=== PATIENT | male | born 1990 | race Caucasian/White ===

== ENCOUNTER 2017-12-10 17:05 | Observation (INO) ==
[2017-12-10] MEDS ORDERED: *HR* EPINEPHrine 1 MG/ML AMPUL IM ONE ×3 (17:26→19:42)
[2017-12-10] MEDS ORDERED: Famotidine 20 MG/2 ML VIAL IVP ONE (17:26)
[2017-12-10] MEDS ORDERED: methylPREDNISolone 125 MG/2 ML VIAL IVP ONE (17:26)
[2017-12-10] MEDS ORDERED: Albuterol 2.5 MG/3 ML NEBULIZER IH ONE ×2 (17:27→17:38)
[2017-12-10] MEDS ORDERED: *HR* EPINEPHrine 1 MG/ML AMPUL ONE (17:28)
[2017-12-10] MEDS ORDERED: 0.9 % Sodium Chloride 1,000 ML IVC ONE (17:30)
[2017-12-10] MEDS ORDERED: Ondansetron 4 MG/2 ML VIAL IVP ONE (17:30)
[2017-12-10] MEDS ORDERED: Albuterol 2.5 MG/3 ML NEBULIZER ONE (17:36)
--- NOTE | 2017-12-10 17:52 | Emergency Department Note ---
Disposition Clinical Impression: Acute anaphylaxis Disposition: Admitted As Inpatient Condition: Serious General Adult HPI - General Chief complaint: ED Chest Pain Stated complaint: real bad chest pain Time Seen by Provider: 12/10/17 17:24 Source: patient Limitations: other - History of Present Illness Pain Scale: 10 - Related Data Home Medications Medication Instructions Recorded Confirmed Omeprazole [PriLOSEC] 40 mg PO DAILY 12/10/17 12/10/17 Allergies Allergy/AdvReac Type Severity Reaction Status Date / Time Iodinated Contrast- Oral and Allergy Anaphylaxis Verified 12/10/17 18:22 IV Dye [Iodinated Contrast Media - IV Dye] Sulfa (Sulfonamide Allergy Hives Verified 12/10/17 18:22 Antibiotics) Past Medical History - Past Medical History Medical history: Reports: GERD Surgical history: Reports: non-contributory, other Psychiatric history: Reports: no psych history - Social History Smoking Status: Never smoker Smokeless Tobacco Status: No Alcohol use: Reports: none Drug use: Reports: none Physical Exam - General Limitations: other General appearance: alert, anxious Course Vital Signs Temperature 97.7 F 12/10/17 17:17 Pulse Rate 131 12/10/17 17:17 Respiratory Rate 22 12/10/17 17:17 Blood Pressure 145/88 12/10/17 17:17 O2 Sat by Pulse Oximetry 96 12/10/17 17:17 Temperature 97.7 F 12/10/17 17:17 Pulse Rate 120 12/10/17 20:16 Respiratory Rate 16 12/10/17 20:44 Blood Pressure 136/93 12/10/17 20:44 O2 Sat by Pulse Oximetry 99 12/10/17 20:16 Oxygen Delivery Oxygen Delivery Room Air Medical Decision Making - Lab Data Result diagrams: 12/10/17 17:59 12/10/17 17:59 Lab Results 12/10/17 12/10/17 Range/Units 17:59 17:59 WBC 16.9 H (4.3-11.1) K/mcL RBC 6.81 H (4.19-5.50) M/mcL Hgb 17.8 H (12.9-16.9) g/dL Hct 51.6 H (37.5-50.1) % MCV 75.8 L (83.0-100.0) fL MCH 26.1 L (28.0-33.3) pg MCHC 34.5 (31.6-35.5) g/dL RDW 15.0 H (11.5-14.5) % Plt Count 376 (140-400) K/mcL MPV 10.3 (9.4-12.4) fL Immature Gran % 0.5 (0-4) % Seg Neutrophils % 74.1 % Lymphocytes % 19.4 % Monocytes % 5.3 % Eosinophils % 0.5 % Basophils % 0.2 % Neutrophils # 12.5 H (1.6-8.9) K/mcL Lymphocytes # 3.3 (0.6-4.6) K/mcL Monocytes # 0.9 (0.0-1.3) K/mcL Eosinophils # 0.1 (0.0-0.6) K/mcL Basophils # 0.0 (0.0-0.2) K/mcL Sodium 140 (136-145) mEq/L Potassium 3.6 (3.5-5.1) mEq/L Chloride 104 (98-107) mEq/L Carbon Dioxide 25 (23-29) mEq/L BUN 15 (6-20) mg/dL Creatinine 0.86 (0.70-1.30) mg/dL Est GFR ( Amer) > 60 (> 60) Est GFR (Non-Af Amer) > 60 (> 60) BUN/Creatinine Ratio 17 (6-26) Glucose 170 H (70-105) mg/dL Calculated Osmolality 295 (280-300) Calcium 9.1 (8.6-10.3) mg/dL Critical Care Time Critical Care Time: Yes Total Critical Care Time: 45 Attestation: Critical care performed: Time is exclusive of separately billable procedures. Time includes: direct patient care, patient reassessment, coordination of patient care, interpretation of data (laboratory data, radiology data, and respiratory data), review of patient's medical records, medical consultation and documentation of patient care. Procedures included in critical care time: Procedures excluded from critical care time: Attestation Statement - Attestation Attestation: I examined this patient and my medical decision-making was reviewed with the Resident Physician. I agree with the documented findings, disposition and treatment plan as described except to the extent set forth below. Patient presents to the ED with a chief complaint of an allergic reaction. Patient took some Pepto-Bismol afternoon for an upset stomach. He states following that he began getting chest pain. Hives. He vomited. Short of breath. Arrival to the room the patient has hives located to his trunk face and neck. Clutching his chest. Actively vomiting. Plan. Patient is really given IM epinephrine. He continued to worsen complaining of shortness of breath chest pain and increasing hives. He was given a 0.5 dose of epinephrine. He starting on epinephrine drip at this time. Given Solu-Medrol Pepcid and Benadryl. Zofran. IV fluids. Patient will be admitted. Patient has no history of allergic reaction. Patient rebounded after epinephrine wore off. He is given another IM dose and started on a drip. Patient is admitted to ICU.
[2017-12-10 18:27] LABS: Basophils % 0.2 %; Eosinophils # 0.1 K/mcL (0.0-0.6); Eosinophils % 0.5 %; Hematocrit 51.6 % (37.5-50.1); Hemoglobin 17.8 g/dL (12.9-16.9); Immature Granulocytes % 0.5 % (0-4); Lymphocytes # 3.3 K/mcL (0.6-4.6); Lymphocytes % 19.4 %; Mean Corpuscular HGB Conc 34.5 g/dL (31.6-35.5); Mean Corpuscular Hemoglobin 26.1 pg (28.0-33.3); Mean Corpuscular Volume 75.8 fL (83.0-100.0); Mean Platelet Volume 10.3 fL (9.4-12.4); Monocytes # 0.9 K/mcL (0.0-1.3); Monocytes % 5.3 %; Neutrophils # 12.5 K/mcL (1.6-8.9); Platelet Count 376 K/mcL (140-400); Red Blood Count 6.81 M/mcL (4.19-5.50); Segmented Neutrophils % 74.1 %
[2017-12-10 18:37] LABS: BUN/Creatinine Ratio 17 (6-26); Blood Urea Nitrogen 15 mg/dL (6-20); Calcium 9.1 mg/dL (8.6-10.3); Carbon Dioxide 25 mEq/L (23-29); Chloride 104 mEq/L (98-107); Glucose 170 mg/dL (70-105); Osmolality,Calculated 295 (280-300); Potassium 3.6 mEq/L (3.5-5.1); Sodium 140 mEq/L (136-145); eGFR For African Americans > 60 (> 60); eGFR For Non-African Americans > 60 (> 60)
--- NOTE | 2017-12-10 19:23 | Emergency Department Note ---
Disposition Clinical Impression: Anaphylaxis Qualifiers: Encounter type: initial encounter Qualified Code(s): T78.2XXA - Anaphylactic shock, unspecified, initial encounter Disposition: Admitted As Inpatient Condition: Good Time of Disposition: 21:09 General Adult HPI - General Chief complaint: ED Chest Pain Stated complaint: real bad chest pain Time Seen by Provider: 12/10/17 17:24 Source: patient Limitations: other Nursing Notes Reviewed: Yes Vital Signs Reviewed: Yes - History of Present Illness HPI Narrative: Shortness of breath associated with chest pain. Started having flushing. Began prior to arrival the emergency department. Pain Scale: 10 - Related Data Home Medications Medication Instructions Recorded Confirmed Omeprazole [PriLOSEC] 40 mg PO DAILY 12/10/17 12/10/17 Allergies Allergy/AdvReac Type Severity Reaction Status Date / Time Iodinated Contrast- Oral and Allergy Anaphylaxis Verified 12/10/17 18:22 IV Dye [Iodinated Contrast Media - IV Dye] Sulfa (Sulfonamide Allergy Hives Verified 12/10/17 18:22 Antibiotics) All systems ED: reviewed and negative except as stated. Constitutional: Denies: fever Cardiovascular: Reports: chest pain, palpitations. Denies: syncope Respiratory: Reports: dyspnea. Denies: cough, wheezes Gastrointestinal: Reports: nausea, vomiting, diarrhea, hematochezia (Occasional greater than 1 year.). Denies: abdominal pain, hematemesis, melena Genitourinary: Denies: urgency, dysuria, frequency Musculoskeletal: Denies: back pain Integumentary: Reports: rash, pruritus Past Medical History - Past Medical History Attestation: Yes The following information was validated with the patient. Source: patient Medical history: Reports: GERD Surgical history: Reports: non-contributory, other Psychiatric history: Reports: no psych history - Social History Smoking Status: Never smoker Smokeless Tobacco Status: No Alcohol use: Reports: none Drug use: Reports: none Physical Exam - General Limitations: other General appearance: alert, anxious - Head Head exam: atraumatic, normocephalic, normal inspection - Eye Eye exam: Present: normal appearance, PERRL, EOMI - ENT ENT exam: normal exam, normal oropharynx, mucous membranes dry, other ( Oropharyngeal Erythema. No swelling.) - Neck Neck exam: Present: normal inspection, full ROM, trachea midline, other ( Erythema). Absent: tenderness - Chest Chest inspection: Present: normal inspection, symmetric chest wall rise. Absent : tenderness - Respiratory Respiratory exam: Present: accessory muscle use, other (Lung sounds tight.) - Cardiovascular Cardiovascular exam: Present: normal rhythm, tachycardia, normal heart sounds - Abdominal Exam Abdominal exam: Present: soft, Non-Tender, other (Hives across her abdomen). Absent: tenderness, distention, organomegaly - Extremities Exam Extremities exam: Present: normal inspection, full ROM, normal capillary refill. Absent: tenderness, pedal edema - Back Exam Back exam: Present: normal inspection - Neurological Exam Neurological exam: Present: alert, oriented X3 - Psychiatric Psychiatric exam: Present: anxious - Skin Skin exam: Present: warm, dry, rash, diaphoresis, erythema. Absent: cyanosis Course Course Narrative: Male patient presenting to the emergency department in acute anaphylaxis. He is progressively getting worse as I examine him. He has hives and erythema to his trunk and up his neck and on his face. He is diaphoretic. Scratching his head. States the only thing different he did today was take Pepto-Bismol earlier in the day. He states he has taken this before with no reaction. States that he has been having some nausea and vomiting for the past couple days however it got significantly worse today as he started getting short of breath. He complains of shortness of breath at this time. There is no oral swelling however there is erythema to his posterior oropharynx. His lung sounds are tight I do not appreciate any wheezing however I feel that he is too tight to hear wheezing. We gave patient an initial 0.3 mg of IM epinephrine with no relief 5 minutes later he was given 0.5 mg of IM epinephrine. We have also given him Pepcid, Benadryl, Solu-Medrol. We have started an IV epinephrine drip. This subsequently infiltrated. I spoke to the pharmacist today who states that we do not need to follow the extravasation protocol to only elevate the arm and place ice to the area. He did have 14 mL of this IV epinephrine drip. The area is mildly erythematous however it was erythematous during his allergic reaction as well. He does complain of pain to this area. He reports a several year history of intermittent GI bleeding. He is also had some dark vomitus. We will get a basic lab workup on patient and evaluate him while he is here. - Reevaluation(s) Reevaluation #1: Patient reassessed. He is developing hives again. They are progressing as I am in the room. We have given the patient another dose of IM epinephrine and had started him on an IV drip of this. We will admit him to the ICU. Time: 19:21 - Consultations Consultation #1: Dr. Mann accepted patient stable condition. Time: 20:00 Vital Signs Temperature 97.7 F 12/10/17 17:17 Pulse Rate 131 12/10/17 17:17 Respiratory Rate 22 12/10/17 17:17 Blood Pressure 145/88 12/10/17 17:17 O2 Sat by Pulse Oximetry 96 12/10/17 17:17 Temperature 97.7 F 12/10/17 17:17 Pulse Rate 120 12/10/17 20:16 Respiratory Rate 16 12/10/17 20:44 Blood Pressure 136/93 12/10/17 20:44 O2 Sat by Pulse Oximetry 99 12/10/17 20:16 Oxygen Delivery Oxygen Delivery Room Air Medical Decision Making - Medical Records Medical records reviewed: Yes I reviewed the patient's medical records. - Lab Data Lab results reviewed: Yes I reviewed the patient's lab results. Result diagrams: 12/10/17 17:59 12/10/17 17:59 Lab Results 12/10/17 12/10/17 Range/Units 17:59 17:59 WBC 16.9 H (4.3-11.1) K/mcL RBC 6.81 H (4.19-5.50) M/mcL Hgb 17.8 H (12.9-16.9) g/dL Hct 51.6 H (37.5-50.1) % MCV 75.8 L (83.0-100.0) fL MCH 26.1 L (28.0-33.3) pg MCHC 34.5 (31.6-35.5) g/dL RDW 15.0 H (11.5-14.5) % Plt Count 376 (140-400) K/mcL MPV 10.3 (9.4-12.4) fL Immature Gran % 0.5 (0-4) % Seg Neutrophils % 74.1 % Lymphocytes % 19.4 % Monocytes % 5.3 % Eosinophils % 0.5 % Basophils % 0.2 % Neutrophils # 12.5 H (1.6-8.9) K/mcL Lymphocytes # 3.3 (0.6-4.6) K/mcL Monocytes # 0.9 (0.0-1.3) K/mcL Eosinophils # 0.1 (0.0-0.6) K/mcL Basophils # 0.0 (0.0-0.2) K/mcL Sodium 140 (136-145) mEq/L Potassium 3.6 (3.5-5.1) mEq/L Chloride 104 (98-107) mEq/L Carbon Dioxide 25 (23-29) mEq/L BUN 15 (6-20) mg/dL Creatinine 0.86 (0.70-1.30) mg/dL Est GFR ( Amer) > 60 (> 60) Est GFR (Non-Af Amer) > 60 (> 60) BUN/Creatinine Ratio 17 (6-26) Glucose 170 H (70-105) mg/dL Calculated Osmolality 295 (280-300) Calcium 9.1 (8.6-10.3) mg/dL - Radiology Data Radiology results reviewed: Yes I reviewed the patient's radiology results. Chest X-Ray 12/10/17 17:59 IMPRESSION: No acute abnormality D/ / Jc Diggs MD / Jc Diggs MD Interpreting Provider: Jc Diggs MD - EKG Data EKG #1 EKG attestation: Yes I reviewed and interpreted this EKG. EKG results narrative: Sinus tachycardia at a rate of 114. GA interval 139. Your a duration is 93. QT is 360. QTC is 428. No signs of acute ischemia. No significant change from previous EKG dated 08/20/2017.
[2017-12-10] MEDS: EPINEPHrine 1 MG in D5% in Water 250 ML IVC SCH ×2 (19:35→23:10)
--- NOTE | 2017-12-10 21:15 | Internal Med History&Physical ---
<Ronald Jerez - Last Filed: 12/11/17 03:30> Date of Encounter: 12/11/17 Time of Encounter: 21:11 Internal Medicine - H&P: HPI Chief complaint: Shortness of breath, hives, chest pain Admitted From: Home History of present illness: Mr. Dave is a 27-year-old male who presented to [facility] on 12/10/17 in acute anaphylaxis. Patient reported that earlier in the day, he had taken Pepto- Bismol for nausea and vomiting that he had developed over the last several days. Reports that a stomach virus has been going around his house. On presentation, patient had hives and erythematous trunk and up to his neck and face. Patient was diaphoretic and scratching his head. Reports that he has taken Pepto-Bismol in the past without having any severe reaction. He notes that the only time he had a similar episode was when he received IV contrast. During this time, patient developed a very similar presentation, in which she developed hives, chest pain, and difficulty breathing due to swelling in his neck. Upon arrival, patient was in respiratory distress. Pulse was elevated at 131, and respiratory rate was 22. Blood pressure elevated at 145/88. All other vitals were within normal limits. Patient was vomiting on arrival; vomit was dark in color. Laboratory analysis demonstrated an elevated white count at 16.9. Elevated neutrophils of 12.5. Hemoglobin elevated at 17.8, glucose elevated at 170. Labs otherwise unremarkable. EKG demonstrated sinus tachycardia with a heart rate of 119. No acute ischemic changes were appreciated. No changes from previous EKG. Chest x-ray demonstrated no acute process. Upon examination, there is no oral swelling, but erythema was present in the posterior oropharynx. No wheezing was appreciated on physical exam 1 patient first arrived. He was given an initial dose of 0.5 mg of IM epinephrine with no relief. 5 minutes later, patient was given an additional dose of IM epinephrine. At this time, he was also given Pepcid, Benadryl, and Solu- Medrol. An IV epinephrine drip was then started. Approximately 5 minutes later , patients symptoms had subsided. Patient was seen and examined at bedside this evening. Patient reports that since he has received epinephrine, his symptoms have completely subsided. Denies having any respiratory distress, chest pain, or hives. Reports that his initial nausea and vomiting have subsided as well. Reports that his only known allergies are to IV contrast and to sulfa drugs. Denies taking any new medications. Denies having new products in the household. No known allergies to bees, particular foods, or chemicals. Plan at this time is to take patient to the ICU for further observation. Past Med Surg Social Fam HX - Past Medical History Medical history: GERD Psychiatric history: no psych history - Past Surgical History Surgical History: non-contributory, other - Social History Smoking Status: Never smoker Smokeless Tobacco Status: No Alcohol use: none Drug use: none Internal Medicine - H&P: Meds Omeprazole [PriLOSEC] 40 mg PO DAILY 12/10/17 [History] 3 Allergy/AdvReac Type Severity Reaction Status Date / Time Iodinated Contrast- Oral and Allergy Anaphylaxis Verified 12/10/17 18:22 IV Dye [Iodinated Contrast Media - IV Dye] Sulfa (Sulfonamide Allergy Hives Verified 12/10/17 18:22 Antibiotics) All Systems PM: A 10-system review of systems was performed and is negative for pertinent findings except as documented above in the HPI. - Constitutional Constitutional: no chills, no fever(s), no night sweats - EENT Eyes: no change in vision, no discharge, no pain, no photophobia Ears: no ear discharge, no ear pain, no tinnitus Nose, mouth and throat: no dysphagia, no nasal discharge, no neck pain, no sore throat - Cardiovascular Cardiovascular ROS IM: no chest pain, no diaphoresis, no dyspnea, no lightheadedness, no palpitations, no syncope - Respiratory Respiratory: no cough, no dyspnea, no wheezing, no excessive phlegm production - Gastrointestinal Gastrointestinal: no abdominal pain, no diarrhea, no hematemesis, no hematochezia, no melena, no nausea, no vomiting - Musculoskeletal Musculoskeletal ROS IM: no numbness, no tingling - Integumentary Integumentary IM: no rash, no unusual bruising - Neurological Neurological ROS: no confusion, no convulsions, no focal weakness, no numbness, no tingling, no tremor(s) - Hematologic/Lymphatic Hematologic/Lymphatic: no easy bruising - Constitutional Vitals: Temp Pulse Resp BP Pulse Ox 97.7 F 120 16 136/93 99 12/10/17 17:17 12/10/17 20:16 12/10/17 20:44 12/10/17 20:44 12/10/17 20:16 - Head Head exam: Present: atraumatic, normocephalic - Eye Eye exam: Present: PERRL, conjuntiva pink, sclera anicteric Pupils: Present: PERRL - Neck Neck exam general surgery: Present: supple, trachea midline. Absent: lymphadenopathy - Respiratory Respiratory exam: Present: CTAB. Absent: accessory muscle use, rales, rhonchi, wheezes - Cardiovascular Cardiovascular exam: Present: +S1, +S2, tachycardia. Absent: diastolic murmur, gallop, rubs, systolic murmur - GI/Abdominal GI/Abdominal exam: Present: normal bowel sounds, soft, no peritoneal signs. Absent: distended, tenderness - Extremities Exam Extremities exam: Present: warm, radial pulses palpable and symmetrical. Absent : calf tenderness, cyanotic, pedal edema - Neurological Exam Neurological exam: Present: CN II-XII intact, oriented X3, no focal deficits. Absent: pronater drift, facial droop, speech deficit - Skin Skin exam: Present: dry, intact Internal Med - H&P Results - Labs CBC & Chem 7: 12/10/17 17:59 12/10/17 17:59 Labs: Short CBC 12/10/17 Range/Units 17:59 WBC 16.9 H (4.3-11.1) K/mcL Hgb 17.8 H (12.9-16.9) g/dL Hct 51.6 H (37.5-50.1) % Plt Count 376 (140-400) K/mcL Neutrophils # 12.5 H (1.6-8.9) K/mcL BMP 12/10/17 17:59 Sodium 140 Potassium 3.6 Chloride 104 Carbon Dioxide 25 BUN 15 Creatinine 0.86 Glucose 170 H Calcium 9.1 - Impressions ITS Impressions Chest X-Ray 12/10/17 17:59 IMPRESSION: No acute abnormality D/ / Jc Diggs MD / Jc Diggs MD Interpreting Provider: Jc Diggs MD - Assessment and plan (1) Acute anaphylaxis Current Visit: No Status: Acute Assessment and plan: Initially presented to the emergency department with hives, chest pain, diaphoresis, and shortness of breath. - Initial physical examination was remarkable for a erythematous posterior oropharynx; no swelling was observed - Patient was initially given a one-time dose of IM epinephrine, 0.5 mg; there were no change in his symptoms at this time. He was subsequently given the following: - Zofran 8 mg IV once - Solu-Medrol 125 mg IV once - Pepcid 20 mg IV once - Epinephrine 0.5 mg IM once 2 - Epinephrine drip 1 mg Initial symptoms subsequently improved Plan: - Transfer to ICU for further observation; monitor for changes in respiratory status - Vital sign assessment every hour - Continuous telemetry and pulse oximetry - Normal saline 125 mL/h - Pepcid 1 mg IV every 12 hours - Solu-Medrol 60 mg IV every 8 hours - Benadryl 25 mg PO every 8 hours Qualifiers: Qualified Code(s): T78.2XXA - Anaphylactic shock, unspecified, initial encounter (2) Nausea and vomiting Current Visit: No Status: Acute Assessment and plan: Patient initially presented to the ER with nausea and vomiting since earlier this morning. - Took a one-time dose of Pepto-Bismol in an attempt to alleviate his symptoms. - On arrival, patient still felt nauseous and was vomiting - Vomit was dark in color - Known history of GI bleeds - Patient does have a known history of acid reflux. - In the emergency department, patient was given a one-time dose of Pepcid 20 mg IV - Nausea and vomiting have subsequently improved. Plan: - Admits he ICU for further observation - Pepcid 20 mg IV every 12 Qualifiers: Qualified Code(s): R11.2 - Nausea with vomiting, unspecified (3) Leukocytosis Current Visit: No Status: Acute Assessment and plan: Initial laboratory analysis demonstrates an elevated white count of 16.9 - Neutrophils are elevated at 12.5. - Patient is currently afebrile - No known source of infection at this time - Patient endorses feeling sick since earlier this morning; reports that members of his household have had "a stomach virus" for the past few days. - Continue to monitor patient's medical condition - Repeat a.m. labs Qualifiers: Qualified Code(s): D72.829 - Elevated white blood cell count, unspecified (4) Acid reflux Current Visit: No Status: Acute Assessment and plan: Patient has a known history of acid reflux - Reports taking omeprazole at home for the last several years - Pepcid 20 mg IV every 12 Qualifiers: Qualified Code(s): K21.9 - Gastro-esophageal reflux disease without esophagitis - Time Spent With Patient Total time spent is greater than 50% in coordination of care (as documented) at patient's floor/unit and/or counseling patient: <Bryan Diehl - Last Filed: 12/11/17 06:10> Date of Encounter: 12/11/17 Internal Medicine - H&P: HPI History of present illness: Mr. Dave is a 27 year old male All Systems PM: A 10-system review of systems was performed and is negative for pertinent findings except as documented above in the HPI. - Constitutional Vitals: Temp Pulse Resp BP Pulse Ox 98.6 F 86 18 115/71 97 12/11/17 04:55 12/11/17 05:00 12/11/17 05:00 12/11/17 05:00 12/11/17 05:00 Internal Med - H&P Results - Labs CBC & Chem 7: 12/11/17 04:08 12/10/17 17:59 Labs: Short CBC 12/11/17 Range/Units 04:08 WBC 14.6 H (4.3-11.1) K/mcL Hgb 15.6 D (12.9-16.9) g/dL Hct 44.1 (37.5-50.1) % Plt Count 285 (140-400) K/mcL Neutrophils # 13.5 H (1.6-8.9) K/mcL - Attending Attestation I have seen and examined this patient independently. I have discussed with resident physician Dr Jerez regarding the management plan. Agree with the documentation. Will place Pepto-Bismol into patient's allergy list. Patient has similar anaphylaxis reaction with IV contrast, he may need to prescribe EpiPen upon discharge. - Time Spent With Patient Total time spent is greater than 50% in coordination of care (as documented) at patient's floor/unit and/or counseling patient: 20 minutes 25 - 35 minutes
[2017-12-10] MEDS: 0.9 % Sodium Chloride 1,000 ML IVC SCH (21:58)
[2017-12-10] MEDS ORDERED: Naloxone 0.4 MG/ML INJ IVP PRN (23:01)
[2017-12-10] MEDS: methylPREDNISolone 125 MG/2 ML VIAL IVP SCH (23:09)
[2017-12-11 04:24] LABS: Basophils % 0.1 %; Hematocrit 44.1 % (37.5-50.1); Immature Granulocytes % 0.3 % (0-4); Lymphocytes % 6.6 %; Mean Corpuscular HGB Conc 35.4 g/dL (31.6-35.5); Mean Corpuscular Hemoglobin 26.6 pg (28.0-33.3); Mean Corpuscular Volume 75.1 fL (83.0-100.0); Mean Platelet Volume 10.2 fL (9.4-12.4); Monocytes # 0.1 K/mcL (0.0-1.3); Monocytes % 0.5 %; Neutrophils # 13.5 K/mcL (1.6-8.9); Platelet Count 285 K/mcL (140-400); Red Blood Count 5.87 M/mcL (4.19-5.50); Red Cell Distribution Width 13.4 % (11.5-14.5); Segmented Neutrophils % 92.5 %
[2017-12-11 04:25] LABS: Hemoglobin 15.6 g/dL (12.9-16.9)
[2017-12-11] MEDS: 0.9 % Sodium Chloride 1,000 ML IVC SCH (05:26)
[2017-12-11] MEDS: Famotidine 20 MG/2 ML VIAL IVP SCH ×2 (05:26→16:26)
[2017-12-11] MEDS: methylPREDNISolone 125 MG/2 ML VIAL IVP SCH (07:33)
[2017-12-11 09:32] LABS: BUN/Creatinine Ratio 16 (6-26); Blood Urea Nitrogen 13 mg/dL (6-20); Calcium 8.8 mg/dL (8.6-10.3); Carbon Dioxide 18 mEq/L (23-29); Chloride 108 mEq/L (98-107); Glucose 239 mg/dL (70-105); Osmolality,Calculated 290 (280-300); Potassium 4.6 mEq/L (3.5-5.1); Sodium 136 mEq/L (136-145); eGFR For African Americans > 60 (> 60); eGFR For Non-African Americans > 60 (> 60)
[2017-12-11] MEDS ORDERED: MethylPREDNISolone 40 MG/ML VIAL IVP SCH (16:00)
[2017-12-11] MEDS ORDERED: *HR* Dextrose 50 % in Water (Syg) 50 ML SYRINGE IVP PRN (17:26)
[2017-12-11] MEDS ORDERED: Dextrose Gel 15 GM/37.5 ML TUBE PO PRN ×2 (17:26)
[2017-12-11] MEDS ORDERED: D5% in Water 1,000 ML IVC PRN (17:26)
--- NOTE | 2017-12-11 17:26 | Internal Med Progress Note ---
Date of Encounter: 12/11/17 Time of Encounter: 08:40 - Assessment and plan (1) Acute anaphylaxis Current Visit: Yes Status: Acute Assessment and plan: Resolved. Taper down IV steroids as tolerated. Continue IV PPI and when necessary Benadryl. Suspected allergic reaction to Pepto-Bismol, possible salicylate allergy. Anticipate discharge in a.m. Qualifiers: Encounter type: subsequent encounter Qualified Code(s): T78.2XXD - Anaphylactic shock, unspecified, subsequent encounter (2) Hyperglycemia Current Visit: Yes Status: Acute Assessment and plan: Noted to have steroid-induced hyperglycemia. Suspect diabetes. Check hemoglobin A1c. Start Accucheck blood glucose monitoring with SSI. - Time Spent With Patient Total time spent is greater than 50% in coordination of care (as documented) at patient's floor/unit and/or counseling patient: - Subjective Interval history: Improved shortness of breath and chest pain. No new complaints. Tolerates oral diet. - Constitutional Vitals: Temp Pulse Resp BP Pulse Ox 98.7 F 100 18 124/77 96 12/11/17 16:00 12/11/17 16:00 12/11/17 16:00 12/11/17 16:00 12/11/17 16:00 General appearance: Present: A&O X 3, answers questions appropriately - Respiratory Respiratory exam: Present: CTAB. Absent: accessory muscle use, rales, rhonchi, wheezes - Cardiovascular Cardiovascular exam: Present: RRR, +S1, +S2. Absent: diastolic murmur, gallop, rubs, systolic murmur - GI/Abdominal GI/Abdominal exam: Present: normal bowel sounds, soft, no peritoneal signs. Absent: distended, tenderness Internal Medicine: Result - Labs CBC & Chem 7: 12/11/17 04:08 12/11/17 04:03 Labs: Short CBC 12/11/17 Range/Units 04:08 WBC 14.6 H (4.3-11.1) K/mcL Hgb 15.6 D (12.9-16.9) g/dL Hct 44.1 (37.5-50.1) % Plt Count 285 (140-400) K/mcL Neutrophils # 13.5 H (1.6-8.9) K/mcL BMP 12/11/17 04:03 Sodium 136 Potassium 4.6 D Chloride 108 H Carbon Dioxide 18 L BUN 13 Creatinine 0.79 Glucose 239 H Calcium 8.8 Consult Discharge Plan - Plan Referrals: NONE,PCP [Primary Care Provider] -
[2017-12-11] MEDS ORDERED: Naloxone 0.4 MG/ML INJ IVP PRN (18:25)
[2017-12-11] MEDS ORDERED: Insulin LISPRO 300 UNITS/3 ML VIAL SQ SCH (21:00)
[2017-12-12] MEDS ORDERED: MethylPREDNISolone 40 MG/ML VIAL IVP SCH
[2017-12-12] MEDS ORDERED: Famotidine 20 MG/2 ML VIAL IVP SCH (06:00)
[2017-12-12] MEDS ORDERED: Insulin LISPRO 300 UNITS/3 ML VIAL SQ SCH (07:30)
[2017-12-12] MEDS ORDERED: predniSONE 20 MG TABLET PO SCH (09:00)
--- NOTE | 2017-12-12 09:27 | Discharge Summary ---
- NOTES TO OUTPATIENT PROVIDER Notes to Outpatient Provider: Anaphylaxis, to Pepto-Bismol probably; Monitor blood sugars and HbA1C; Orders not resulted at time of discharge: Pending orders 12/11/17 04:03 Hgb A1C Routine Date of Encounter: 12/12/17 Time of Encounter: 08:40 - Discharge Diagnosis (1) Acute anaphylaxis Priority: Primary Status: Acute Qualifiers: Encounter type: subsequent encounter Qualified Code(s): T78.2XXD - Anaphylactic shock, unspecified, subsequent encounter (2) Hyperglycemia Priority: Primary Status: Acute Hospital course: Mr. Dave is a 27 year old male with no significant medical history, who was admitted with severe anaphylactic reaction possibly to Pepto-Bismol. He received IV steroids, Benadryl, H2 inhibitors, and his signs and symptoms significantly improved. He did not require mechanical ventilation. He was noted to have steroid-induced hyperglycemia, hemoglobin A1c is pending at the time of his discharge. He is encouraged to follow lifestyle modifications with weight loss and exercise and to follow-up with his primary care provider. He is medically stable for discharge. Discharge discussed with: patient - Time Spent with Patient Total time spent providing and/or coordinating discharge services: Greater than 30 minutes (40 min) - Discharge Medications Prescriptions: predniSONE [PredniSONE] 40 mg PO DAILY #6 tablet Home Medications: Omeprazole [PriLOSEC] 40 mg PO DAILY 12/10/17 [History] predniSONE [PredniSONE] 40 mg PO DAILY #6 tablet 12/12/17 [Rx] Allergies/Adverse Reactions: 3 Allergy/AdvReac Type Severity Reaction Status Date / Time Iodinated Contrast- Oral and Allergy Anaphylaxis Verified 12/10/17 18:22 IV Dye [Iodinated Contrast Media - IV Dye] Sulfa (Sulfonamide Allergy Hives Verified 12/10/17 18:22 Antibiotics) Date of admission: 12/10/17 20:37 Primary care physician: PCP NONE Discharging clinician: Lexy Elliott Anticipated date of discharge: 12/12/17 - Constitutional Vitals: Temp Pulse Resp BP Pulse Ox 97.5 F L 92 23 117/64 97 12/12/17 08:00 12/12/17 03:00 12/12/17 03:00 12/12/17 03:00 12/12/17 03:00 General appearance: Present: A&O X 3, answers questions appropriately - Cardiovascular Cardiovascular exam: Present: RRR, +S1, +S2. Absent: diastolic murmur, gallop, rubs, systolic murmur - Patient Status Disposition: Home, Self-Care Condition: Good Functional capacity at discharge: independent ambulation Overall status at discharge: patient is back to baseline - Discharge Instructions Follow Up With: NONE,PCP [Primary Care Provider] - Additional Instructions: F/up with PCP in 1-2 weeks - Diet and Activity Activity: resume usual activities as tolerated Diet: diabetic diet
[2017-12-12 09:32] VITALS: BP 135/87
[2017-12-12 14:53] LABS: Estimated Average Glucose 105 mg/dl; Hemoglobin A1C 5.3 %
--- NOTE | 2017-12-14 14:36 | Electrocardiograph Report ---
[address] [address] Test Date: 2017-12-10 Pat Name: Spencer Dave Department: 104 Room: [facility] Gender: M [employer] Outseamer: : 1990 Requested By: Josefa See Order Number: [id number] Reading MD: Shyam Phan Measurements Intervals [place] Rate: 114 P: 44 TN: 139 QRS: 6 QRSD: 93 T: 41 QT: 360 QTc: 428 Interpretive Statements SINUS TACHYCARDIA INDETERMINATE AXIS Electronically Signed On 12-14-2017 14:34:48 EDT by Shyam Phan
== END 2017-12-12 10:15 | disposition home or self-care (01) ==
LOC: EMEROO 17:05 → ICNU 20:37 → INTOOBSV 20:37 → SUATTDRO 20:37 → ICNU 21:02
PROVIDERS: ADMIT Pediatrics; ATTEND Internal Medicine